=== PATIENT | male | born 1980 | race Caucasian/White ===

== ENCOUNTER 2023-10-05 19:35 | Emergency (ER) | payer OTHER ==
[2023-10-05] MEDS ORDERED: KETOROLAC 30 MG/ML INJ ONE (20:11)
[2023-10-05] MEDS ORDERED: methocarbamoL 750 MG TAB ONE (20:11)
[2023-10-05] MEDS ORDERED: MORPHINE 4 MG/ML SYR ONE (20:12)
[2023-10-05] MEDS ORDERED: TDAP (DIPHTH,PERTUSS(ACELL),TET VAC) 0.5 ML VIAL IMVAC ONE (20:26)
[2023-10-05] MEDS ORDERED: LIDOCAINE 1% 20 ML MDV ONE (20:26)
--- NOTE | 2023-10-05 20:35 | RAD REPORT ---
EXAM DESCRIPTION: RAD - Tib Fib Left - 10/05/2023 8:26 pm CLINICAL HISTORY: left leg injury COMPARISON: No comparisons FINDINGS: Bony thickening mid shaft of the tibia seen. This may be related to previous fracture. If there is no history of remote fracture, further workup would be warranted with nuclear medicine bone scan. Otherwise, no worrisome bone finding.
--- NOTE | 2023-10-05 20:35 | RAD REPORT ---
EXAM DESCRIPTION: RAD - Foot Left 3 View - 10/05/2023 8:26 pm CLINICAL HISTORY: left foot injury COMPARISON: No comparisons FINDINGS: Soft tissue swelling is seen involving the anterior foot. No acute fracture or dislocation . Small calcaneal spurs.
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
[2023-10-05 21:30] VITALS: BP 128/79; TEMP 98; O2SAT 100
== END 2023-10-05 21:22 | disposition home or self-care (01) ==
LOC: ER 19:35
DX: S90.812A Abrasion, left foot, initial encounter (principal); S80.212A Abrasion, left knee, initial encounter; S80.812A Abrasion, left lower leg, initial encounter; S90.32XA Contusion of left foot, initial encounter; S80.02XA Contusion of left knee, initial encounter
CPT/HCPCS: 73630; 73590; J2001; 96372; 96374; 96375; 99284